=== PATIENT | female | born 1960 | race Caucasian/White ===

== ENCOUNTER 2017-06-13 07:32 | Emergency (ER) | payer MEDICAID ==
[~2017-06-13] VITALS: Ht 152.4 cm; Wt 50.0 kg
[2017-06-13 08:10] LABS: BASOPHILS # (AUTO) 0.03 x10^3/uL (0-0.1); BASOPHILS % (AUTO) 0 % (0-1); EOSINOPHILS # (AUTO) 0.01 x10^3/uL (0-0.4); EOSINOPHILS % (AUTO) 0 % (1-7); LYMPHOCYTES % (AUTO) 18 % (22-44); MD NO; MEAN CORPUSCULAR HEMOGLOBIN 30.2 pg (27.0-34.8); MEAN CORPUSCULAR HGB CONC 33.7 g/dL (32.4-35.8); MEAN CORPUSCULAR VOLUME 89.6 fL (80-100); MEAN PLATELET VOLUME 8.6 fL (7.4-10.4); MONOCYTES # (AUTO) 1.02 x10^3/uL (0.2-0.8); MONOCYTES % (AUTO) 9 % (2-9); NEUTROPHILS # (AUTO) 8.23 x10^3/uL (1.8-6.8); NEUTROPHILS % (AUTO) 73 % (42-75); PLATELET COUNT 258 x10^3/uL (130-400); RED BLOOD COUNT 4.82 x10^6/uL (3.82-5.3); RED CELL DISTRIBUTION WIDTH 12.9 % (9.6-15.2)
[2017-06-13 08:20] LABS: ALBUMIN 2.6 g/dL (3.4-5.0); ANION GAP 10 mmol/L (5-15); CALCIUM 8.7 mg/dL (8.5-10.1); CHLORIDE 102 mmol/L (98-107); CREATININE 2.02 mg/dL (0.55-1.02)
[2017-06-13 09:54] VITALS: BP 90/56
== END 2017-06-13 10:02 | disposition home or self-care (01) ==
LOC: ED 07:47
DX: R53.1 Weakness (principal); N18.3 Chronic kidney disease, stage 3 (moderate); I12.9 Hypertensive chronic kidney disease with stage 1 through stage 4 chronic kidney disease, or unspecified chronic kidney disease; E10.22 Type 1 diabetes mellitus with diabetic chronic kidney disease; E10.40 Type 1 diabetes mellitus with diabetic neuropathy, unspecified; F17.200 Nicotine dependence, unspecified, uncomplicated; E03.9 Hypothyroidism, unspecified; J44.9 Chronic obstructive pulmonary disease, unspecified; Z79.4 Long term (current) use of insulin
CPT/HCPCS: 36415; 80048; 82040; 85025; 93005; 99285

== ENCOUNTER 2017-07-19 15:21 | Inpatient (IN) | payer MEDICAID ==
[~2017-07-19] VITALS: Ht 162.6 cm; Wt 51.3 kg
[2017-07-19] MEDS ORDERED: SODIUM CHLORIDE 0.9%, 500ML IVBOLUS ONE (16:00)
[2017-07-19] MEDS ORDERED: SODIUM CHLORIDE FLUSH 10ML SYR IVF ONE (16:00)
[2017-07-19] MEDS ORDERED: SODIUM CHLORIDE 0.9% 1,000ML IVBOLUS ONE (16:00)
[2017-07-19 16:08] LABS: MEAN CORPUSCULAR HEMOGLOBIN 30.5 pg (27.0-34.8); MEAN CORPUSCULAR HGB CONC 32.4 g/dL (32.4-35.8); MEAN CORPUSCULAR VOLUME 94.3 fL (80-100); MEAN PLATELET VOLUME 8.8 fL (7.4-10.4); PLATELET COUNT 371 x10^3/uL (130-400); RED BLOOD COUNT 4.33 x10^6/uL (3.82-5.3); RED CELL DISTRIBUTION WIDTH 13.4 % (9.6-15.2)
[2017-07-19] MEDS ORDERED: LEVO25TA4 PO (16:08)
[2017-07-19] MEDS ORDERED: INSU100C SQ-INSULIN (16:08)
[2017-07-19] MEDS ORDERED: INSU100V8 SQ (16:08)
[2017-07-19] MEDS ORDERED: GABA300C10 PO (16:08)
[2017-07-19] MEDS ORDERED: LISI2.5T PO (16:08)
[2017-07-19 16:19] LABS: MICROSCOPIC AUTO
[2017-07-19 16:22] LABS: ALANINE AMINOTRANSFERASE 21 U/L (12-78); ALBUMIN 2.8 g/dL (3.4-5.0); ANION GAP 19 mmol/L (5-15); CALCIUM 8.7 mg/dL (8.5-10.1); CHLORIDE 77 mmol/L (98-107); CREATININE 1.85 mg/dL (0.55-1.02)
[2017-07-19 16:24] LABS: ALKALINE PHOSPHATASE 135 U/L (45-117); BILIRUBIN,TOTAL 0.7 mg/dL (0.2-1.0); TOTAL PROTEIN 7.6 g/dL (6.4-8.2)
[2017-07-19 16:27] LABS: CULTURE INDICATED? YES
[2017-07-19 16:28] LABS: AMPHETAMINE SCREEN, URINE Positive (Negative); BARBITURATE SCREEN, URINE Negative (Negative); BENZODIAZEPINE SCREEN, URINE Negative (Negative); CANNABINOID SCREEN, URINE Negative (Negative); COCAINE SCREEN, URINE Negative (Negative); METHADONE SCREEN, URINE Negative (Negative); OPIATE SCREEN, URINE Negative (Negative)
[2017-07-19] MEDS ORDERED: CEFTRIAXONE PMX 1GM/50ML 50 ML IVPB ONE (16:30)
[2017-07-19 16:31] LABS: TROPONIN I < 0.015 ng/mL (0.000-0.045)
[2017-07-19] MEDS ORDERED: CEFTRIAXONE PMX 1GM/50ML 50 ML ONE (16:35)
[2017-07-19 16:37] LABS: MD YES
[2017-07-19 16:38] LABS: <PLATELET ESTIMATE> ADEQUATE; <PLT MORPHOLOGY> NORMAL PLT MORPH; <RBC MORPHOLOGY> NORMAL; BAND#(MANUAL) 0.19 x10^3/uL; BANDS%(MANUAL) 1 % (0-7); MONOS#(MANUAL) 0.97 x10^3/uL (0.3-2.7); MONOS% (MANUAL) 5 % (2-9); SEG#(MANUAL) 18.24 x10^3/uL (1.8-6.8); SEGS% (MANUAL) 94 % (42-75)
[2017-07-19] MEDS ORDERED: REGULAR INSULIN 62.5 UNITS in SODIUM CHLORIDE 0.9% 249.375 ML IV PRN ×2 (16:40→18:00)
[2017-07-19] MEDS ORDERED: ONDANSETRON ODT 4 MG ONE (16:40)
[2017-07-19 16:49] LABS: HEMOGLOBIN A1C 11.6 % (4.2-6.3)
[2017-07-19] MEDS ORDERED: SODIUM BICARB 8.4%, 50ML SYRINGE IVPush ONE (17:00)
[2017-07-19] MEDS ORDERED: CALCIUM CHLORIDE 10%, 10ML SYR IVPush ONE (17:00)
[2017-07-19] MEDS ORDERED: ONDANSETRON ODT 4 MG PO ONE (17:00)
[2017-07-19] MEDS ORDERED: INSULIN REGULAR 100 UNITS/ML, 3ML VIAL IVPush ONE (17:00)
[2017-07-19] MEDS ORDERED: SODIUM BICARB 8.4%, 50ML SYRINGE ONE (17:03)
[2017-07-19] MEDS ORDERED: INSULIN REGULAR 100 UNITS/ML, 3ML VIAL ONE (17:03)
[2017-07-19] MEDS ORDERED: CALCIUM CHLORIDE 10%, 10ML SYR ONE (17:03)
[2017-07-19 17:10] LABS: ACETONE, SERUM Moderate(40mg/dL) mg/dL (Negative)
[2017-07-19] MEDS: D5%-0.45% NACL 1,000 ML IV SCH (17:51)
[2017-07-19] MEDS ORDERED: ACETAMINOPHEN 325 MG TABLET PO PRN (18:00)
[2017-07-19] MEDS ORDERED: POLYETHYLENE GLYCOL 17 GM PACKET PO PRN (18:00)
[2017-07-19] MEDS ORDERED: BISACODYL 10 MG SUPP PR PRN (18:00)
[2017-07-19] MEDS ORDERED: ONDANSETRON 2MG/ML, 2ML IVPush PRN (18:00)
[2017-07-19] MEDS ORDERED: DOCUSATE 100 MG CAPSULE PO PRN (18:00)
[2017-07-19 18:15] VITALS: BP 122/66
[2017-07-19] MEDS: SODIUM CHLORIDE 0.9% 1,000 ML IV SCH (18:50)
[2017-07-19] MEDS: NICOTINE 7 MG/24 HR PATCH.TD24 TD SCH (18:50)
[2017-07-19 19:28] LABS: ANION GAP 16 mmol/L (5-15); CALCIUM 8.9 mg/dL (8.5-10.1); CHLORIDE 88 mmol/L (98-107); CREATININE 1.62 mg/dL (0.55-1.02)
[2017-07-19] MEDS ORDERED: ONDANSETRON ODT 4 MG PO PRN (20:30)
[2017-07-19] MEDS: FAMOTIDINE 20 MG/2 ML IVPush SCH (21:12)
[2017-07-19 21:36] VITALS: BP 122/66
[2017-07-19 23:31] LABS: ANION GAP 10 mmol/L (5-15); CALCIUM 8.7 mg/dL (8.5-10.1); CHLORIDE 95 mmol/L (98-107); CREATININE 1.39 mg/dL (0.55-1.02)
[2017-07-20] MEDS: SODIUM CHLORIDE 0.9% 1,000 ML IV SCH (01:51)
[2017-07-20] MEDS: D5%-0.45% NACL 1,000 ML IV SCH (02:44)
[2017-07-20 04:00] VITALS: BP 102/51
[2017-07-20 04:04] LABS: ANION GAP 9 mmol/L (5-15); CALCIUM 8.7 mg/dL (8.5-10.1); CHLORIDE 100 mmol/L (98-107)
[2017-07-20 04:05] LABS: CREATININE 1.19 mg/dL (0.55-1.02)
[2017-07-20 04:16] LABS: BASOPHILS # (AUTO) 0.15 x10^3/uL (0-0.1); BASOPHILS % (AUTO) 1 % (0-1); EOSINOPHILS # (AUTO) 0.08 x10^3/uL (0-0.4); EOSINOPHILS % (AUTO) 1 % (1-7); LYMPHOCYTES # (AUTO) 3.45 x10^3/uL (1-3.4); LYMPHOCYTES % (AUTO) 23 % (22-44); MD NO; MEAN CORPUSCULAR HEMOGLOBIN 30.4 pg (27.0-34.8); MEAN CORPUSCULAR HGB CONC 33.2 g/dL (32.4-35.8); MEAN CORPUSCULAR VOLUME 91.6 fL (80-100); MEAN PLATELET VOLUME 8.1 fL (7.4-10.4); MONOCYTES # (AUTO) 1.19 x10^3/uL (0.2-0.8); MONOCYTES % (AUTO) 8 % (2-9); NEUTROPHILS # (AUTO) 10.49 x10^3/uL (1.8-6.8); NEUTROPHILS % (AUTO) 68 % (42-75); PLATELET COUNT 351 x10^3/uL (130-400); RED BLOOD COUNT 4.04 x10^6/uL (3.82-5.3); RED CELL DISTRIBUTION WIDTH 13.6 % (9.6-15.2)
[2017-07-20] MEDS: LEVOTHYROXINE 88 MCG TABLET PO SCH (05:39)
[2017-07-20 07:23] LABS: ANION GAP 9 mmol/L (5-15); CALCIUM 8.1 mg/dL (8.5-10.1); CHLORIDE 100 mmol/L (98-107); CREATININE 0.98 mg/dL (0.55-1.02)
[2017-07-20] MEDS: GABAPENTIN 300 MG CAPSULE PO SCH (08:46)
[2017-07-20] MEDS: FAMOTIDINE 20 MG/2 ML IVPush SCH ×2 (08:47→21:27)
[2017-07-20] MEDS: ENOXAPARIN 40 MG/0.4 ML SQ SCH (08:47)
[2017-07-20] MEDS ORDERED: INSULIN GLARGINE 100 UNITS/ML, PEN SQ-INSULIN SCH (10:30)
[2017-07-20] MEDS ORDERED: INSULIN GLARGINE 100 UNITS/ML, PEN ONE (10:32)
[2017-07-20] MEDS: CEFTRIAXONE PMX 1GM/50ML 50 ML IV SCH (11:03)
[2017-07-20] MEDS: INSULIN LISPRO 100 UNITS/ML, PEN SQ-INSULIN SCH ×2 (12:59→18:17)
[2017-07-20] MEDS ORDERED: LIDODERM 5% PATCH TD SCH (13:00)
[2017-07-20] MEDS ORDERED: KETOROLAC 30 MG/1 ML IVPush PRN (13:00)
[2017-07-20 14:25] VITALS: BP 102/63
[2017-07-20] MEDS: NICOTINE 7 MG/24 HR PATCH.TD24 TD SCH (18:17)
[2017-07-20 19:44] VITALS: BP 115/65
[2017-07-21] MEDS: INSULIN LISPRO 100 UNITS/ML, PEN SQ-INSULIN SCH ×3 (00:30→11:51)
[2017-07-21 01:23] VITALS: BP 163/94
[2017-07-21 05:31] LABS: BASOPHILS # (AUTO) 0.08 x10^3/uL (0-0.1); BASOPHILS % (AUTO) 1 % (0-1); EOSINOPHILS # (AUTO) 0.16 x10^3/uL (0-0.4); EOSINOPHILS % (AUTO) 2 % (1-7); LYMPHOCYTES # (AUTO) 2.62 x10^3/uL (1-3.4); LYMPHOCYTES % (AUTO) 38 % (22-44); MD NO; MEAN CORPUSCULAR HGB CONC 33.4 g/dL (32.4-35.8); MEAN CORPUSCULAR VOLUME 92.7 fL (80-100); MEAN PLATELET VOLUME 7.9 fL (7.4-10.4); MONOCYTES # (AUTO) 0.51 x10^3/uL (0.2-0.8); MONOCYTES % (AUTO) 7 % (2-9); NEUTROPHILS # (AUTO) 3.48 x10^3/uL (1.8-6.8); NEUTROPHILS % (AUTO) 51 % (42-75); PLATELET COUNT 339 x10^3/uL (130-400); RED BLOOD COUNT 3.79 x10^6/uL (3.82-5.3); RED CELL DISTRIBUTION WIDTH 13.9 % (9.6-15.2)
[2017-07-21 05:38] LABS: CHLORIDE 102 mmol/L (98-107)
[2017-07-21 05:46] LABS: ALANINE AMINOTRANSFERASE 18 U/L (12-78); ALBUMIN 1.8 g/dL (3.4-5.0); ALKALINE PHOSPHATASE 83 U/L (45-117); ANION GAP 8 mmol/L (5-15); BILIRUBIN,TOTAL 0.2 mg/dL (0.2-1.0); CALCIUM 7.9 mg/dL (8.5-10.1); CREATININE 0.93 mg/dL (0.55-1.02); TOTAL PROTEIN 5.6 g/dL (6.4-8.2)
[2017-07-21] MEDS: LEVOTHYROXINE 88 MCG TABLET PO SCH (06:16)
[2017-07-21 06:55] VITALS: BP 171/98
[2017-07-21] MEDS: GABAPENTIN 300 MG CAPSULE PO SCH (08:21)
[2017-07-21] MEDS: CEFTRIAXONE PMX 1GM/50ML 50 ML IV SCH (08:21)
[2017-07-21] MEDS: ENOXAPARIN 40 MG/0.4 ML SQ SCH (08:21)
[2017-07-21] MEDS: FAMOTIDINE 20 MG/2 ML IVPush SCH (08:21)
[2017-07-21] MEDS ORDERED: INSULIN GLARGINE 100 UNITS/ML, PEN SQ-INSULIN SCH (10:30)
[2017-07-21 12:24] VITALS: BP 134/61
[2017-07-21] MEDS ORDERED: INSU100C SQ-INSULIN (12:48)
[2017-07-21] MEDS ORDERED: CEFD300C37 PO (12:48)
[2017-07-21] MEDS ORDERED: INSU100V8 SQ (12:48)
[2017-07-21] MEDS ORDERED: LEVO25TA4 PO (12:48)
== END 2017-07-21 14:43 | disposition home or self-care (01) | DRG 637 ==
LOC: ED 17:07 → CCU 17:51 → 3NE 07-20 13:54
PROVIDERS: ADMIT Emergency Medicine; ATTEND Emergency Medicine
DX: E10.10 Type 1 diabetes mellitus with ketoacidosis without coma (principal); E43 Unspecified severe protein-calorie malnutrition; N17.9 Acute kidney failure, unspecified; N10 Acute pyelonephritis; E87.5 Hyperkalemia; E87.1 Hypo-osmolality and hyponatremia; Z68.1 Body mass index [BMI] 19.9 or less, adult; B19.20 Unspecified viral hepatitis C without hepatic coma; E03.9 Hypothyroidism, unspecified; F15.90 Other stimulant use, unspecified, uncomplicated; F17.200 Nicotine dependence, unspecified, uncomplicated; I10 Essential (primary) hypertension; J44.9 Chronic obstructive pulmonary disease, unspecified; Z59.0 Homelessness
CPT/HCPCS: 36415; 71045; 80048; 80053; 80307; 81001; 82010; 82800; 82947; 82962; 83036; 83605; 83690; 83735; 84100; 84443; 84484; 85025; 86706; 86803; 87040; 87081; 87086; 87340; 87521; 87806; 93005; 96361; 96365; 96375; 96376; 99291; J0696; J1650; J1815; J1885; Q0162; G0475; J7030; J7040; J7050; S0028

== ENCOUNTER 2017-10-19 15:40 | Emergency (ER) | payer MEDICAID ==
[~2017-10-19] VITALS: Ht 152.4 cm; Wt 41.0 kg
[~2017-10-19 15:40] MED LIST: CEFD300C37 PO; GABA300C10 PO; INSU100C SQ-INSULIN; INSU100V8 SQ; LEVO25TA4 PO; LISI2.5T PO
[2017-10-19] MEDS ORDERED: SODIUM CHLORIDE 0.9% 1,000ML IVBOLUS ONE ×2 (16:00→17:30)
[2017-10-19] MEDS ORDERED: LIDOCAINE-MPF 1%, 5ML INFIL ONE (16:00)
[2017-10-19] MEDS ORDERED: LIDOCAINE-MPF 1%, 2ML ONE (16:03)
[2017-10-19 16:38] LABS: PH, VENOUS 7.356 pH (7.320-7.420)
[2017-10-19 16:39] LABS: FIO2 ROOM AIR %
[2017-10-19 16:48] LABS: ALANINE AMINOTRANSFERASE 24 U/L (12-78); ALBUMIN 2.3 g/dL (3.4-5.0); ANION GAP 9 mmol/L (5-15); CALCIUM 8.1 mg/dL (8.5-10.1); CHLORIDE 103 mmol/L (98-107); CREATININE 1.17 mg/dL (0.55-1.02)
[2017-10-19 16:50] LABS: ALKALINE PHOSPHATASE 109 U/L (45-117); BILIRUBIN,TOTAL 0.1 mg/dL (0.2-1.0); TOTAL PROTEIN 6.4 g/dL (6.4-8.2)
[2017-10-19 17:04] LABS: CULTURE INDICATED? YES; MICROSCOPIC AUTO
[2017-10-19] MEDS ORDERED: INSULIN REGULAR 100 UNITS/ML, 3ML VIAL ONE (17:08)
[2017-10-19 17:13] LABS: ACETONE, SERUM Negative (Negative)
[2017-10-19] MEDS ORDERED: CEFTRIAXONE PMX 1GM/50ML 50 ML ONE (17:15)
[2017-10-19] MEDS ORDERED: CEFTRIAXONE PMX 1GM/50ML 50 ML IV ONE (17:30)
[2017-10-19] MEDS ORDERED: INSULIN REGULAR 100 UNITS/ML, 3ML VIAL IVPush ONE (17:30)
[2017-10-19 17:40] LABS: BASOPHILS # (AUTO) 0.02 x10^3/uL (0-0.1); BASOPHILS % (AUTO) 0 % (0-1); EOSINOPHILS % (AUTO) 2 % (1-7); LYMPHOCYTES # (AUTO) 2.53 x10^3/uL (1-3.4); LYMPHOCYTES % (AUTO) 40 % (22-44); MD NO; MEAN CORPUSCULAR HGB CONC 33.5 g/dL (32.4-35.8); MEAN CORPUSCULAR VOLUME 92.6 fL (80-100); MEAN PLATELET VOLUME 8.4 fL (7.4-10.4); MONOCYTES # (AUTO) 0.14 x10^3/uL (0.2-0.8); MONOCYTES % (AUTO) 2 % (2-9); NEUTROPHILS # (AUTO) 3.46 x10^3/uL (1.8-6.8); NEUTROPHILS % (AUTO) 55 % (42-75); PLATELET COUNT 314 x10^3/uL (130-400); RED CELL DISTRIBUTION WIDTH 13.5 % (9.6-15.2)
[2017-10-19 18:20] VITALS: BP 174/92
== END 2017-10-19 18:58 | disposition home or self-care (01) ==
LOC: ED 18:10
DX: E10.65 Type 1 diabetes mellitus with hyperglycemia (principal); I10 Essential (primary) hypertension; Z59.0 Homelessness; Z72.9 Problem related to lifestyle, unspecified; J44.9 Chronic obstructive pulmonary disease, unspecified; E03.9 Hypothyroidism, unspecified; E10.10 Type 1 diabetes mellitus with ketoacidosis without coma
CPT/HCPCS: 36415; 80053; 81001; 82010; 82800; 82803; 85025; 87077; 87086; 96361; 96365; 96375; 99284; J0696; J7030; 87186

== ENCOUNTER 2019-02-23 15:08 | Inpatient (IN) | payer MEDICAID ==
[~2019-02-23] VITALS: Ht 154.9 cm; Wt 50.0 kg
[2019-02-23] MEDS ORDERED: DIPH,PERTUSS(ACELL),TET VAC/PF 0.5 ML IM-VACC ONE ×2 (15:30→16:34)
[2019-02-23 15:49] LABS: MEAN CORPUSCULAR HEMOGLOBIN 30.2 pg (27.0-34.8); MEAN CORPUSCULAR HGB CONC 32.6 g/dL (32.4-35.8); MEAN CORPUSCULAR VOLUME 92.6 fL (80-100); MEAN PLATELET VOLUME 8.3 fL (7.4-10.4); PLATELET COUNT 465 x10^3/uL (130-400); RED BLOOD COUNT 4.63 x10^6/uL (3.82-5.3); RED CELL DISTRIBUTION WIDTH 14.1 % (9.6-15.2)
[2019-02-23 16:01] LABS: ALBUMIN 2.6 g/dL (3.4-5.0); ANION GAP 8 mmol/L (5-15); CALCIUM 9.3 mg/dL (8.5-10.1); CHLORIDE 100 mmol/L (98-107); CREATININE 1.86 mg/dL (0.55-1.02)
[2019-02-23 16:06] LABS: BASOPHILS # (AUTO) 0.02 x10^3/uL (0-0.1); BASOPHILS % (AUTO) 0 % (0-1); EOSINOPHILS % (AUTO) 0 % (1-7); LYMPHOCYTES # (AUTO) 0.75 x10^3/uL (1-3.4); LYMPHOCYTES % (AUTO) 3 % (22-44); MD SCAN; MONOCYTES # (AUTO) 0.63 x10^3/uL (0.2-0.8); MONOCYTES % (AUTO) 3 % (2-9); NEUTROPHILS # (AUTO) 20.99 x10^3/uL (1.8-6.8); NEUTROPHILS % (AUTO) 94 % (42-75)
[2019-02-23] MEDS ORDERED: LEVO88TA4 PO (16:24)
[2019-02-23] MEDS ORDERED: CYCL5TAB PO (16:24)
[2019-02-23] MEDS ORDERED: ATOR-2 PO (16:24)
[2019-02-23] MEDS ORDERED: INSU100V8 SQ (16:24)
[2019-02-23] MEDS ORDERED: GABA300C10 PO (16:24)
[2019-02-23] MEDS ORDERED: PHARMACOKINETIC CONSULTATION MC ONE ×2 (16:30→21:30)
[2019-02-23] MEDS ORDERED: AMPICILLIN/SULBACTAM 3 GM in SODIUM CHLORIDE 0.9% 100 ML IV ONE (16:30)
[2019-02-23] MEDS ORDERED: VANCOMYCIN PER PHARMACY MC ONE (16:30)
[2019-02-23] MEDS ORDERED: LORazepam 2 MG/ML, 1ML IVPush ONE (16:30)
[2019-02-23] MEDS ORDERED: VANCOMYCIN PMX 1GM/200ML 200 ML IVPB ONE (16:30)
[2019-02-23] MEDS ORDERED: SODIUM CHLORIDE 0.9% 1,000ML IVBOLUS ONE ×2 (16:30)
[2019-02-23] MEDS ORDERED: LORazepam 2 MG/ML, 1ML ONE (16:33)
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
[2019-02-23] MEDS ORDERED: PHARMACY MAY ADJ FOR RENAL FX MC PRN (19:30)
[2019-02-23] MEDS ORDERED: DOCUSATE 100 MG CAPSULE PO PRN (19:30)
[2019-02-23] MEDS ORDERED: ONDANSETRON ODT 4 MG PO PRN (19:30)
[2019-02-23] MEDS: HEPARIN 5,000 UNITS/ML, 1ML SQ SCH (19:30)
[2019-02-23] MEDS ORDERED: TEMAZEPAM 15 MG CAPSULE PO PRN (19:30)
[2019-02-23] MEDS ORDERED: VANCOMYCIN PER PHARMACY MC PRN (19:30)
--- NOTE | 2019-02-23 19:39 | NUR ---
REPORT TO MARY ALICE SANDS
[2019-02-23] MEDS ORDERED: NICOTINE 21 MG/24 HR PATCH.TD24 TD PRN (20:00)
[2019-02-23 21:00] VITALS: BP 187/61
[2019-02-23] MEDS ORDERED: PHARMACOKINETIC MONITORING MC PRN (21:30)
[2019-02-23] MEDS: ACETAMINOPHEN 325 MG TABLET PO PRN (21:58)
[2019-02-23] MEDS: CYCLOBENZAPRINE 10 MG TABLET PO PRN (21:59)
[2019-02-23] MEDS: INSULIN LISPRO 100 UNITS/ML, PEN SQ-INSULIN SCH (22:19)
[2019-02-24 00:07] VITALS: BP 150/74
[2019-02-24 01:11] VITALS: BP 152/58
[2019-02-24] MEDS: HEPARIN 5,000 UNITS/ML, 1ML SQ SCH ×3 (03:22→20:49)
[2019-02-24] MEDS: AMPICILLIN/SULBACTAM 3 GM in SODIUM CHLORIDE 0.9% 100 ML IV SCH ×3 (03:22→21:12)
[2019-02-24] MEDS: ACETAMINOPHEN 325 MG TABLET PO PRN ×2 (06:30→10:39)
[2019-02-24 06:47] LABS: MEAN CORPUSCULAR HEMOGLOBIN 30.5 pg (27.0-34.8); MEAN CORPUSCULAR HGB CONC 33.1 g/dL (32.4-35.8); MEAN CORPUSCULAR VOLUME 92.2 fL (80-100); PLATELET COUNT 409 x10^3/uL (130-400); RED BLOOD COUNT 4.35 x10^6/uL (3.82-5.3); RED CELL DISTRIBUTION WIDTH 13.9 % (9.6-15.2)
[2019-02-24 06:59] LABS: ANION GAP 9 mmol/L (5-15); CALCIUM 8.7 mg/dL (8.5-10.1); CHLORIDE 107 mmol/L (98-107); CREATININE 1.25 mg/dL (0.55-1.02)
[2019-02-24] MEDS: INSULIN LISPRO 100 UNITS/ML, PEN SQ-INSULIN SCH ×4 (07:00→20:49)
[2019-02-24 07:52] LABS: BASOPHILS # (AUTO) 0.03 x10^3/uL (0-0.1); BASOPHILS % (AUTO) 0 % (0-1); EOSINOPHILS # (AUTO) 0.15 x10^3/uL (0-0.4); EOSINOPHILS % (AUTO) 1 % (1-7); LYMPHOCYTES % (AUTO) 9 % (22-44); MD SCAN; MONOCYTES # (AUTO) 0.79 x10^3/uL (0.2-0.8); MONOCYTES % (AUTO) 5 % (2-9); NEUTROPHILS # (AUTO) 14.82 x10^3/uL (1.8-6.8); NEUTROPHILS % (AUTO) 85 % (42-75)
[2019-02-24 08:29] VITALS: BP 119/74
[2019-02-24] MEDS ORDERED: LEVOTHYROXINE 88 MCG TABLET PO SCH (09:00)
[2019-02-24] MEDS: LINEZOLID PMX 600MG/300ML 300 ML IV SCH ×2 (10:33→22:23)
[2019-02-24] MEDS: INSULIN GLARGINE 100 UNITS/ML, PEN SQ-INSULIN SCH (10:38)
[2019-02-24] MEDS: CYCLOBENZAPRINE 10 MG TABLET PO PRN (10:39)
[2019-02-24] MEDS: ATORVASTATIN 80 MG TABLET PO SCH (10:39)
[2019-02-24] MEDS: GABAPENTIN 300 MG CAPSULE PO SCH (10:39)
[2019-02-24] MEDS: SODIUM CHLORIDE 0.9% 1,000 ML IV SCH (11:00)
[2019-02-24 12:55] LABS: FREE T4 (FREE THYROXINE) 0.97 ng/dL (0.76-1.46)
[2019-02-24 13:50] VITALS: BP 124/78
[2019-02-24 14:13] LABS: AMPHETAMINE SCREEN, URINE Positive (Negative); BARBITURATE SCREEN, URINE Negative (Negative); BENZODIAZEPINE SCREEN, URINE Negative (Negative); CANNABINOID SCREEN, URINE Negative (Negative); COCAINE SCREEN, URINE Negative (Negative); METHADONE SCREEN, URINE Negative (Negative); OPIATE SCREEN, URINE Negative (Negative)
[2019-02-24] MEDS ORDERED: GADOTERATE 7.5 MMOL/15 ML SYR ONE (15:12)
[2019-02-24] MEDS ORDERED: VANCOMYCIN PMX 1GM/200ML 200 ML IV SCH (18:00)
[2019-02-24 19:31] VITALS: BP 161/91
[2019-02-25] MEDS: SODIUM CHLORIDE 0.9% 1,000 ML IV SCH ×3 (02:08→17:18)
[2019-02-25 03:59] VITALS: BP 123/74
[2019-02-25] MEDS: AMPICILLIN/SULBACTAM 3 GM in SODIUM CHLORIDE 0.9% 100 ML IV SCH ×3 (05:31→21:05)
[2019-02-25] MEDS: LEVOTHYROXINE 100 MCG TABLET PO SCH (05:31)
[2019-02-25] MEDS: HEPARIN 5,000 UNITS/ML, 1ML SQ SCH ×3 (05:32→21:05)
[2019-02-25 06:09] LABS: MEAN CORPUSCULAR HEMOGLOBIN 29.7 pg (27.0-34.8); MEAN CORPUSCULAR HGB CONC 31.9 g/dL (32.4-35.8); PLATELET COUNT 420 x10^3/uL (130-400); RED BLOOD COUNT 4.17 x10^6/uL (3.82-5.3); RED CELL DISTRIBUTION WIDTH 13.9 % (9.6-15.2)
[2019-02-25 06:20] LABS: ALANINE AMINOTRANSFERASE 16 U/L (12-78); ALBUMIN 1.6 g/dL (3.4-5.0); ANION GAP 7 mmol/L (5-15); CHLORIDE 109 mmol/L (98-107)
[2019-02-25 06:26] LABS: ALKALINE PHOSPHATASE 133 U/L (45-117); BILIRUBIN,TOTAL 0.3 mg/dL (0.2-1.0); TOTAL PROTEIN 6.6 g/dL (6.4-8.2)
[2019-02-25 06:34] LABS: C-REACTIVE PROTEIN, QUANT > 19.00 mg/dL (0.02-0.49)
[2019-02-25 07:00] LABS: HCT (SEDRATE) 38.8 % (34.6-47.8)
[2019-02-25] MEDS: INSULIN LISPRO 100 UNITS/ML, PEN SQ-INSULIN SCH ×4 (07:00→21:07)
[2019-02-25 07:07] LABS: ANISOCYTOSIS 1+; BASOPHILS # (AUTO) 0.05 x10^3/uL (0-0.1); BASOPHILS % (AUTO) 0 % (0-1); EOSINOPHILS # (AUTO) 0.04 x10^3/uL (0-0.4); EOSINOPHILS % (AUTO) 0 % (1-7); LYMPHOCYTES # (AUTO) 2.02 x10^3/uL (1-3.4); LYMPHOCYTES % (AUTO) 12 % (22-44); MD MORPH REVIEW ONLY; MONOCYTES # (AUTO) 1.07 x10^3/uL (0.2-0.8); MONOCYTES % (AUTO) 7 % (2-9); NEUTROPHILS # (AUTO) 13.33 x10^3/uL (1.8-6.8); NEUTROPHILS % (AUTO) 81 % (42-75)
[2019-02-25 07:11] LABS: <PLATELET ESTIMATE> INCREASED; TOXIC GRAN 1+
[2019-02-25 07:12] LABS: <PLT MORPHOLOGY> NORMAL PLT MORPH
[2019-02-25] MEDS: SODIUM CHLORIDE FLUSH 10ML SYR IVF SCH ×2 (08:10→21:05)
[2019-02-25] MEDS ORDERED: DEXTROSE 50%, 50ML SYRINGE IVPush PRN (08:30)
[2019-02-25] MEDS: D5%-0.45% NACL 1,000 ML IV SCH ×2 (08:30→16:30)
[2019-02-25] MEDS: GLUCAGON 1 MG IM PRN (08:32)
[2019-02-25] MEDS: ATORVASTATIN 80 MG TABLET PO SCH (08:36)
[2019-02-25] MEDS: GABAPENTIN 300 MG CAPSULE PO SCH (08:36)
[2019-02-25] MEDS: INSULIN GLARGINE 100 UNITS/ML, PEN SQ-INSULIN SCH (08:37)
[2019-02-25 09:21] VITALS: BP 125/76
[2019-02-25 10:25] VITALS: BP 142/87
[2019-02-25] MEDS ORDERED: MIDAZOLAM 1 MG/ML, 2ML ONE (10:33)
[2019-02-25] MEDS ORDERED: FENTANYL PF 250 MCG/5ML ONE (10:33)
[2019-02-25] MEDS ORDERED: DEXAMETHASONE 4 MG/ML, 1ML ONE ×3 (10:35→16:30)
[2019-02-25] MEDS ORDERED: ONDANSETRON 2MG/ML, 2ML ONE ×2 (10:35→16:30)
[2019-02-25] MEDS ORDERED: FENTANYL PF 100 MCG/2ML IV PRN (11:00)
[2019-02-25] MEDS ORDERED: OXYcodone 5 MG/5 ML ORAL.SOL UDC PO PRN ×2 (11:00→13:30)
[2019-02-25] MEDS ORDERED: MEPERIDINE/PF 25MG/ML,1ML IVPush PRN (11:00)
[2019-02-25] MEDS ORDERED: HYDROmorphone 2 MG/ML, 1ML IVPush PRN (11:00)
[2019-02-25] MEDS ORDERED: PROMETHAZINE 25 MG/ML, 1ML IV PRN (11:00)
[2019-02-25] MEDS ORDERED: HALOPERIDOL 5 MG/ML IV PRN (11:00)
[2019-02-25] MEDS ORDERED: MORPHINE SULFATE 4 MG/ML, 1ML IVPush PRN (11:00)
[2019-02-25] MEDS ORDERED: hydrALAzine 20 MG/ML, 1ML IV PRN (11:00)
[2019-02-25] MEDS ORDERED: LABETALOL 5MG/ML, 20ML IV PRN (11:00)
[2019-02-25] MEDS: LINEZOLID PMX 600MG/300ML 300 ML IV SCH ×2 (11:11→23:15)
[2019-02-25] MEDS ORDERED: OXYcodone 5 MG/5 ML ORAL.SOL UDC ONE (12:35)
[2019-02-25 13:41] VITALS: BP 137/85
[2019-02-25] MEDS ORDERED: PROPOFOL 10 MG/ML, 20ML ONE (16:30)
[2019-02-25 20:17] VITALS: BP 111/69
[2019-02-26] MEDS: SODIUM CHLORIDE 0.9% 1,000 ML IV SCH ×3 (02:35→16:49)
[2019-02-26 03:17] VITALS: BP 120/72
[2019-02-26] MEDS: LEVOTHYROXINE 100 MCG TABLET PO SCH (05:50)
[2019-02-26] MEDS: AMPICILLIN/SULBACTAM 3 GM in SODIUM CHLORIDE 0.9% 100 ML IV SCH ×3 (05:50→21:57)
[2019-02-26] MEDS: HEPARIN 5,000 UNITS/ML, 1ML SQ SCH ×3 (05:50→21:58)
[2019-02-26] MEDS: GABAPENTIN 300 MG CAPSULE PO SCH (08:01)
[2019-02-26] MEDS: ATORVASTATIN 80 MG TABLET PO SCH (08:01)
[2019-02-26] MEDS: SODIUM CHLORIDE FLUSH 10ML SYR IVF SCH ×2 (08:01→21:57)
[2019-02-26] MEDS: INSULIN GLARGINE 100 UNITS/ML, PEN SQ-INSULIN SCH ×2 (08:02→13:49)
[2019-02-26] MEDS: INSULIN LISPRO 100 UNITS/ML, PEN SQ-INSULIN SCH ×2 (08:02→12:15)
[2019-02-26 08:44] LABS: MEAN CORPUSCULAR HEMOGLOBIN 29.3 pg (27.0-34.8); MEAN CORPUSCULAR HGB CONC 31.3 g/dL (32.4-35.8); MEAN CORPUSCULAR VOLUME 93.6 fL (80-100); MEAN PLATELET VOLUME 7.8 fL (7.4-10.4); PLATELET COUNT 304 x10^3/uL (130-400); RED BLOOD COUNT 3.94 x10^6/uL (3.82-5.3); RED CELL DISTRIBUTION WIDTH 14.1 % (9.6-15.2)
[2019-02-26 08:50] LABS: ANION GAP 9 mmol/L (5-15); CALCIUM 7.8 mg/dL (8.5-10.1); CHLORIDE 104 mmol/L (98-107); CREATININE 1.55 mg/dL (0.55-1.02)
[2019-02-26 09:03] LABS: MD YES
[2019-02-26 09:04] LABS: LYMPH#(MANUAL) 0.75 x10^3/uL (1-3.4); LYMPHS% (MANUAL) 3 % (22-44); MONOS#(MANUAL) 0.25 x10^3/uL (0.3-2.7); MONOS% (MANUAL) 1 % (2-9); SEGS% (MANUAL) 96 % (42-75)
[2019-02-26 09:05] LABS: ANISOCYTOSIS 1+
[2019-02-26 09:06] LABS: <PLATELET ESTIMATE> ADEQUATE; <PLT MORPHOLOGY> NORMAL PLT MORPH
[2019-02-26 09:59] VITALS: BP 124/68
[2019-02-26] MEDS ORDERED: INSULIN LISPRO 100 UNIT/ML, 3ML VIAL SQ-INSULIN ONE ×3 (10:00→22:00)
[2019-02-26] MEDS: SODIUM CHLORIDE 0.9% IVPB SCH (10:51)
[2019-02-26] MEDS: DAPTOMYCIN IVPB SCH (10:51)
[2019-02-26 15:32] VITALS: BP 114/67
[2019-02-26 19:24] VITALS: BP 123/72
[2019-02-27] MEDS: SODIUM CHLORIDE 0.9% 1,000 ML IV SCH ×3 (01:00→20:47)
[2019-02-27] MEDS: INSULIN GLARGINE 100 UNITS/ML, PEN SQ-INSULIN SCH ×4 (01:11→21:00)
[2019-02-27] MEDS: ACETAMINOPHEN 325 MG TABLET PO PRN (01:14)
[2019-02-27 01:17] VITALS: BP 148/74
[2019-02-27] MEDS: AMPICILLIN/SULBACTAM 3 GM in SODIUM CHLORIDE 0.9% 100 ML IV SCH ×3 (05:41→21:12)
[2019-02-27] MEDS: LEVOTHYROXINE 100 MCG TABLET PO SCH (05:48)
[2019-02-27] MEDS: HEPARIN 5,000 UNITS/ML, 1ML SQ SCH ×3 (05:49→20:47)
[2019-02-27 06:37] LABS: MEAN CORPUSCULAR HEMOGLOBIN 30.2 pg (27.0-34.8); MEAN CORPUSCULAR HGB CONC 32.1 g/dL (32.4-35.8); MEAN CORPUSCULAR VOLUME 94.1 fL (80-100); MEAN PLATELET VOLUME 8.2 fL (7.4-10.4); PLATELET COUNT 385 x10^3/uL (130-400); RED BLOOD COUNT 3.32 x10^6/uL (3.82-5.3); RED CELL DISTRIBUTION WIDTH 14.2 % (9.6-15.2)
[2019-02-27 06:42] LABS: ANION GAP 7 mmol/L (5-15); CALCIUM 7.7 mg/dL (8.5-10.1); CHLORIDE 108 mmol/L (98-107)
[2019-02-27 07:01] LABS: BASOPHILS # (AUTO) 0.05 x10^3/uL (0-0.1); BASOPHILS % (AUTO) 0 % (0-1); EOSINOPHILS # (AUTO) 0.14 x10^3/uL (0-0.4); EOSINOPHILS % (AUTO) 1 % (1-7); LYMPHOCYTES # (AUTO) 1.65 x10^3/uL (1-3.4); LYMPHOCYTES % (AUTO) 12 % (22-44); MD SCAN; MONOCYTES % (AUTO) 5 % (2-9); NEUTROPHILS # (AUTO) 11.64 x10^3/uL (1.8-6.8); NEUTROPHILS % (AUTO) 82 % (42-75)
[2019-02-27] MEDS ORDERED: MAGNESIUM SULFATE PMX 2GM/50ML 50 ML IV ONE (07:30)
[2019-02-27] MEDS: GABAPENTIN 400 MG CAPSULE PO SCH (07:59)
[2019-02-27 08:15] VITALS: BP 168/84
[2019-02-27] MEDS: SODIUM CHLORIDE FLUSH 10ML SYR IVF SCH ×2 (08:55→20:47)
[2019-02-27] MEDS ORDERED: INSULIN LISPRO 100 UNITS/ML, PEN SQ-INSULIN ONE ×2 (11:30→17:30)
[2019-02-27] MEDS: DAPTOMYCIN IVPB SCH (12:44)
[2019-02-27] MEDS: SODIUM CHLORIDE 0.9% IVPB SCH (12:44)
[2019-02-27 13:35] VITALS: BP 165/83
[2019-02-27 19:22] VITALS: BP 171/91
[2019-02-28] VITALS (8 sets, daily range): BP systolic 134–207; BP diastolic 74–124
[2019-02-28] MEDS: SODIUM CHLORIDE 0.9% 1,000 ML IV SCH ×2 (00:59→18:01)
[2019-02-28] MEDS: HEPARIN 5,000 UNITS/ML, 1ML SQ SCH ×3 (05:30→21:48)
[2019-02-28] MEDS: LEVOTHYROXINE 100 MCG TABLET PO SCH (05:39)
[2019-02-28] MEDS: AMPICILLIN/SULBACTAM 3 GM in SODIUM CHLORIDE 0.9% 100 ML IV SCH ×3 (05:41→20:13)
[2019-02-28] MEDS ORDERED: INSULIN GLARGINE 100 UNITS/ML, PEN SQ-INSULIN SCH ×3 (06:15→18:00)
[2019-02-28] MEDS: DEXTROSE 4 GM TAB.CHEW PO PRN ×3 (07:38→08:04)
[2019-02-28] MEDS: GLUCAGON 1 MG IM PRN (07:50)
[2019-02-28] MEDS: SODIUM CHLORIDE FLUSH 10ML SYR IVF SCH ×2 (09:00→21:48)
[2019-02-28] MEDS: GABAPENTIN 400 MG CAPSULE PO SCH (10:46)
[2019-02-28] MEDS: DAPTOMYCIN IVPB SCH (13:00)
[2019-02-28] MEDS: SODIUM CHLORIDE 0.9% IVPB SCH (13:00)
[2019-02-28] MEDS: hydrALAzine 20 MG/ML, 1ML IV PRN ×2 (13:08→17:15)
[2019-02-28] MEDS: ACETAMINOPHEN 325 MG TABLET PO PRN (18:02)
[2019-03-01] VITALS (7 sets, daily range): BP systolic 128–213; BP diastolic 68–118
[2019-03-01] MEDS: SODIUM CHLORIDE 0.9% 1,000 ML IV SCH ×3 (02:40→20:04)
[2019-03-01] MEDS: AMPICILLIN/SULBACTAM 3 GM in SODIUM CHLORIDE 0.9% 100 ML IV SCH ×3 (04:26→20:12)
[2019-03-01 04:47] LABS: ANION GAP 5 mmol/L (5-15); CALCIUM 7.7 mg/dL (8.5-10.1); CHLORIDE 110 mmol/L (98-107)
[2019-03-01 04:48] LABS: CREATININE 0.89 mg/dL (0.55-1.02)
[2019-03-01 04:52] LABS: BASOPHILS # (AUTO) 0.08 x10^3/uL (0-0.1); BASOPHILS % (AUTO) 1 % (0-1); EOSINOPHILS # (AUTO) 0.21 x10^3/uL (0-0.4); EOSINOPHILS % (AUTO) 3 % (1-7); LYMPHOCYTES # (AUTO) 2.42 x10^3/uL (1-3.4); LYMPHOCYTES % (AUTO) 29 % (22-44); MD NO; MEAN CORPUSCULAR HEMOGLOBIN 30.1 pg (27.0-34.8); MEAN CORPUSCULAR HGB CONC 32.1 g/dL (32.4-35.8); MEAN CORPUSCULAR VOLUME 93.7 fL (80-100); MEAN PLATELET VOLUME 7.5 fL (7.4-10.4); MONOCYTES # (AUTO) 0.74 x10^3/uL (0.2-0.8); MONOCYTES % (AUTO) 9 % (2-9); NEUTROPHILS # (AUTO) 4.98 x10^3/uL (1.8-6.8); NEUTROPHILS % (AUTO) 59 % (42-75); PLATELET COUNT 431 x10^3/uL (130-400); RED BLOOD COUNT 3.65 x10^6/uL (3.82-5.3)
[2019-03-01] MEDS: LEVOTHYROXINE 100 MCG TABLET PO SCH (05:27)
[2019-03-01] MEDS: HEPARIN 5,000 UNITS/ML, 1ML SQ SCH ×3 (05:27→20:04)
[2019-03-01] MEDS ORDERED: MAGNESIUM SULFATE PMX 2GM/50ML 50 ML IV ONE (08:00)
[2019-03-01] MEDS: INSULIN GLARGINE 100 UNITS/ML, PEN SQ-INSULIN SCH (08:06)
[2019-03-01] MEDS: GABAPENTIN 400 MG CAPSULE PO SCH (08:11)
[2019-03-01] MEDS: SODIUM CHLORIDE FLUSH 10ML SYR IVF SCH ×2 (08:13→20:04)
[2019-03-01] MEDS ORDERED: INSULIN LISPRO 100 UNITS/ML, PEN SQ-INSULIN ONE (12:00)
[2019-03-01] MEDS ORDERED: INSULIN GLARGINE 100 UNITS/ML, PEN SQ-INSULIN ONE ×2 (17:00→21:00)
[2019-03-01] MEDS: hydrALAzine 20 MG/ML, 1ML IV PRN (20:20)
[2019-03-02] MEDS: OXYcodone/APAP 5/325MG TABLET PO PRN ×3 (00:25→23:19)
[2019-03-02 01:07] VITALS: BP 171/96
[2019-03-02] MEDS: AMPICILLIN/SULBACTAM 3 GM in SODIUM CHLORIDE 0.9% 100 ML IV SCH ×2 (04:08→12:45)
[2019-03-02] MEDS: SODIUM CHLORIDE 0.9% 1,000 ML IV SCH ×2 (04:08→15:57)
[2019-03-02] MEDS: HEPARIN 5,000 UNITS/ML, 1ML SQ SCH ×2 (04:09→15:58)
[2019-03-02 04:42] LABS: ALBUMIN 1.2 g/dL (3.4-5.0); ANION GAP 5 mmol/L (5-15); CALCIUM 7.7 mg/dL (8.5-10.1); CHLORIDE 107 mmol/L (98-107)
[2019-03-02 04:46] LABS: ALANINE AMINOTRANSFERASE 11 U/L (12-78); ALKALINE PHOSPHATASE 97 U/L (45-117); BILIRUBIN,TOTAL 0.3 mg/dL (0.2-1.0); CREATININE 0.95 mg/dL (0.55-1.02)
[2019-03-02 04:59] LABS: BASOPHILS # (AUTO) 0.05 x10^3/uL (0-0.1); BASOPHILS % (AUTO) 1 % (0-1); EOSINOPHILS # (AUTO) 0.23 x10^3/uL (0-0.4); EOSINOPHILS % (AUTO) 2 % (1-7); LYMPHOCYTES # (AUTO) 1.93 x10^3/uL (1-3.4); LYMPHOCYTES % (AUTO) 19 % (22-44); MD NO; MEAN CORPUSCULAR HEMOGLOBIN 30.2 pg (27.0-34.8); MEAN CORPUSCULAR HGB CONC 32.5 g/dL (32.4-35.8); MEAN CORPUSCULAR VOLUME 92.8 fL (80-100); MEAN PLATELET VOLUME 7.3 fL (7.4-10.4); MONOCYTES # (AUTO) 0.76 x10^3/uL (0.2-0.8); MONOCYTES % (AUTO) 7 % (2-9); NEUTROPHILS # (AUTO) 7.32 x10^3/uL (1.8-6.8); NEUTROPHILS % (AUTO) 71 % (42-75); PLATELET COUNT 419 x10^3/uL (130-400); RED BLOOD COUNT 3.62 x10^6/uL (3.82-5.3); RED CELL DISTRIBUTION WIDTH 14.3 % (9.6-15.2)
[2019-03-02] MEDS: LEVOTHYROXINE 100 MCG TABLET PO SCH (06:07)
[2019-03-02] MEDS ORDERED: MAGNESIUM SULFATE PMX 2GM/50ML 50 ML IV ONE (07:00)
[2019-03-02 07:25] VITALS: BP 177/102
[2019-03-02] MEDS: GABAPENTIN 400 MG CAPSULE PO SCH (09:15)
[2019-03-02] MEDS: INSULIN GLARGINE 100 UNITS/ML, PEN SQ-INSULIN SCH (09:19)
[2019-03-02] MEDS: SODIUM CHLORIDE FLUSH 10ML SYR IVF SCH ×2 (09:20→21:00)
[2019-03-02] MEDS: MAGNESIUM HYDROXIDE 8%, 30ML UDC PO SCH (10:30)
[2019-03-02 13:37] VITALS: BP 177/97
[2019-03-02 18:59] VITALS: BP 187/108
[2019-03-02 19:34] VITALS: BP 183/107
[2019-03-02] MEDS: hydrALAzine 20 MG/ML, 1ML IV PRN (19:35)
[2019-03-02 20:38] VITALS: BP 148/92
[2019-03-03] MEDS: SODIUM CHLORIDE 0.9% 1,000 ML IV SCH ×3 (00:21→22:29)
[2019-03-03 00:25] VITALS: BP 154/85
[2019-03-03] MEDS: AMPICILLIN/SULBACTAM 3 GM in SODIUM CHLORIDE 0.9% 100 ML IV SCH ×3 (03:04→19:40)
[2019-03-03] MEDS: LEVOTHYROXINE 100 MCG TABLET PO SCH (05:49)
[2019-03-03 07:20] VITALS: BP 175/91
[2019-03-03] MEDS: MAGNESIUM HYDROXIDE 8%, 30ML UDC PO SCH (08:55)
[2019-03-03] MEDS: GABAPENTIN 400 MG CAPSULE PO SCH (08:55)
[2019-03-03] MEDS: HEPARIN 5,000 UNITS/ML, 1ML SQ SCH ×4 (08:56→23:38)
[2019-03-03] MEDS: INSULIN GLARGINE 100 UNITS/ML, PEN SQ-INSULIN SCH (08:58)
[2019-03-03] MEDS: SODIUM CHLORIDE FLUSH 10ML SYR IVF SCH ×2 (08:59→22:28)
[2019-03-03] MEDS: OXYcodone/APAP 5/325MG TABLET PO PRN ×2 (11:57→18:41)
[2019-03-03 13:45] VITALS: BP 146/84
[2019-03-03] MEDS ORDERED: INSULIN GLARGINE 100 UNITS/ML, PEN SQ-INSULIN SCH (21:00)
[2019-03-03 21:53] VITALS: BP 169/95
[2019-03-03 22:51] LABS: ANION GAP 4 mmol/L (5-15); CALCIUM 7.7 mg/dL (8.5-10.1); CHLORIDE 105 mmol/L (98-107)
[2019-03-04 02:53] VITALS: BP 176/90
[2019-03-04] MEDS: AMPICILLIN/SULBACTAM 3 GM in SODIUM CHLORIDE 0.9% 100 ML IV SCH ×3 (03:18→21:35)
[2019-03-04 03:24] VITALS: BP 163/81
[2019-03-04] MEDS: LEVOTHYROXINE 100 MCG TABLET PO SCH (05:33)
[2019-03-04] MEDS: SODIUM CHLORIDE 0.9% 1,000 ML IV SCH (05:34)
[2019-03-04] MEDS: OXYcodone/APAP 5/325MG TABLET PO PRN ×2 (05:34→16:41)
[2019-03-04 07:35] VITALS: BP 179/102
[2019-03-04] MEDS: HEPARIN 5,000 UNITS/ML, 1ML SQ SCH ×3 (08:00→16:50)
[2019-03-04] MEDS: SODIUM CHLORIDE FLUSH 10ML SYR IVF SCH ×2 (09:00→21:37)
[2019-03-04] MEDS: MAGNESIUM HYDROXIDE 8%, 30ML UDC PO SCH (09:00)
[2019-03-04] MEDS: GABAPENTIN 400 MG CAPSULE PO SCH (11:55)
[2019-03-04] MEDS: INSULIN GLARGINE 100 UNITS/ML, PEN SQ-INSULIN SCH ×2 (12:04→21:36)
[2019-03-04] MEDS: INSULIN LISPRO 100 UNITS/ML, PEN SQ-INSULIN SCH ×3 (12:05→21:36)
[2019-03-04] MEDS: LISINOPRIL 10 MG TABLET PO SCH ×2 (12:07→21:37)
[2019-03-04 13:29] VITALS: BP 174/92
[2019-03-04 13:36] LABS: BASOPHILS # (AUTO) 0.07 x10^3/uL (0-0.1); BASOPHILS % (AUTO) 1 % (0-1); EOSINOPHILS # (AUTO) 0.29 x10^3/uL (0-0.4); EOSINOPHILS % (AUTO) 4 % (1-7); LYMPHOCYTES # (AUTO) 1.81 x10^3/uL (1-3.4); LYMPHOCYTES % (AUTO) 23 % (22-44); MD NO; MEAN CORPUSCULAR HEMOGLOBIN 30.4 pg (27.0-34.8); MEAN CORPUSCULAR HGB CONC 32.7 g/dL (32.4-35.8); MEAN CORPUSCULAR VOLUME 93.2 fL (80-100); MEAN PLATELET VOLUME 7.5 fL (7.4-10.4); MONOCYTES # (AUTO) 0.84 x10^3/uL (0.2-0.8); MONOCYTES % (AUTO) 11 % (2-9); NEUTROPHILS # (AUTO) 4.86 x10^3/uL (1.8-6.8); NEUTROPHILS % (AUTO) 62 % (42-75); PLATELET COUNT 394 x10^3/uL (130-400); RED BLOOD COUNT 3.24 x10^6/uL (3.82-5.3); RED CELL DISTRIBUTION WIDTH 13.9 % (9.6-15.2)
[2019-03-04 13:44] LABS: ANION GAP 5 mmol/L (5-15); CHLORIDE 104 mmol/L (98-107); CREATININE 0.87 mg/dL (0.55-1.02)
[2019-03-04 20:59] VITALS: BP 152/83
[2019-03-05] MEDS: HEPARIN 5,000 UNITS/ML, 1ML SQ SCH ×3 (00:21→16:29)
[2019-03-05] MEDS: OXYcodone/APAP 5/325MG TABLET PO PRN ×2 (00:21→21:26)
[2019-03-05 05:00] VITALS: BP 136/77
[2019-03-05] MEDS: AMPICILLIN/SULBACTAM 3 GM in SODIUM CHLORIDE 0.9% 100 ML IV SCH ×2 (05:54→15:20)
[2019-03-05] MEDS: LEVOTHYROXINE 100 MCG TABLET PO SCH (05:55)
[2019-03-05] MEDS: INSULIN LISPRO 100 UNITS/ML, PEN SQ-INSULIN SCH ×4 (07:00→21:18)
[2019-03-05] MEDS: GABAPENTIN 400 MG CAPSULE PO SCH (08:33)
[2019-03-05] MEDS: LISINOPRIL 10 MG TABLET PO SCH ×2 (08:33→20:21)
[2019-03-05] MEDS: INSULIN GLARGINE 100 UNITS/ML, PEN SQ-INSULIN SCH ×2 (08:34→21:18)
[2019-03-05] MEDS: MAGNESIUM HYDROXIDE 8%, 30ML UDC PO SCH (08:36)
[2019-03-05] MEDS: SODIUM CHLORIDE FLUSH 10ML SYR IVF SCH ×2 (08:36→20:21)
[2019-03-05 09:02] VITALS: BP 172/83
[2019-03-05 15:30] VITALS: BP 165/85
[2019-03-05 21:08] VITALS: BP 164/91
[2019-03-06] MEDS: AMPICILLIN/SULBACTAM 3 GM in SODIUM CHLORIDE 0.9% 100 ML IV SCH ×3 (00:16→15:35)
[2019-03-06] MEDS: HEPARIN 5,000 UNITS/ML, 1ML SQ SCH ×3 (00:16→20:57)
[2019-03-06 02:58] VITALS: BP 100/83
[2019-03-06 05:18] LABS: BASOPHILS # (AUTO) 0.11 x10^3/uL (0-0.1); BASOPHILS % (AUTO) 2 % (0-1); EOSINOPHILS # (AUTO) 0.26 x10^3/uL (0-0.4); EOSINOPHILS % (AUTO) 4 % (1-7); LYMPHOCYTES # (AUTO) 2.03 x10^3/uL (1-3.4); LYMPHOCYTES % (AUTO) 28 % (22-44); MD NO; MEAN CORPUSCULAR HEMOGLOBIN 30.3 pg (27.0-34.8); MEAN CORPUSCULAR HGB CONC 32.4 g/dL (32.4-35.8); MEAN CORPUSCULAR VOLUME 93.7 fL (80-100); MEAN PLATELET VOLUME 7.4 fL (7.4-10.4); MONOCYTES # (AUTO) 0.94 x10^3/uL (0.2-0.8); MONOCYTES % (AUTO) 13 % (2-9); NEUTROPHILS # (AUTO) 3.97 x10^3/uL (1.8-6.8); NEUTROPHILS % (AUTO) 54 % (42-75); PLATELET COUNT 416 x10^3/uL (130-400); RED BLOOD COUNT 3.08 x10^6/uL (3.82-5.3); RED CELL DISTRIBUTION WIDTH 14.2 % (9.6-15.2)
[2019-03-06 05:27] LABS: ALBUMIN 1.4 g/dL (3.4-5.0); ANION GAP 3 mmol/L (5-15); CALCIUM 7.9 mg/dL (8.5-10.1); CHLORIDE 103 mmol/L (98-107)
[2019-03-06 05:35] LABS: ALANINE AMINOTRANSFERASE 19 U/L (12-78); ALKALINE PHOSPHATASE 102 U/L (45-117); BILIRUBIN,TOTAL 0.1 mg/dL (0.2-1.0); CREATININE 0.98 mg/dL (0.55-1.02); TOTAL PROTEIN 6.2 g/dL (6.4-8.2)
[2019-03-06] MEDS: LEVOTHYROXINE 100 MCG TABLET PO SCH (05:40)
[2019-03-06] MEDS: OXYcodone/APAP 5/325MG TABLET PO PRN ×3 (05:45→22:03)
[2019-03-06 05:56] LABS: HCT (SEDRATE) 28.9 % (34.6-47.8)
[2019-03-06] MEDS: INSULIN LISPRO 100 UNITS/ML, PEN SQ-INSULIN SCH ×4 (07:43→21:12)
[2019-03-06 08:08] VITALS: BP 191/121
[2019-03-06] MEDS: MAGNESIUM HYDROXIDE 8%, 30ML UDC PO SCH (08:47)
[2019-03-06] MEDS: LISINOPRIL 10 MG TABLET PO SCH ×2 (08:47→20:58)
[2019-03-06] MEDS: GABAPENTIN 400 MG CAPSULE PO SCH (08:47)
[2019-03-06] MEDS: INSULIN GLARGINE 100 UNITS/ML, PEN SQ-INSULIN SCH ×2 (08:49→21:12)
[2019-03-06] MEDS: SODIUM CHLORIDE FLUSH 10ML SYR IVF SCH ×2 (08:50→20:58)
[2019-03-06 09:51] VITALS: BP 161/89
[2019-03-06] MEDS ORDERED: FUROSEMIDE 20 MG/2 ML IV ONE (10:00)
[2019-03-06 12:54] VITALS: BP 197/93
[2019-03-06] MEDS: hydrALAzine 20 MG/ML, 1ML IV PRN (15:35)
[2019-03-06 19:19] VITALS: BP 137/69
[2019-03-07] MEDS: AMPICILLIN/SULBACTAM 3 GM in SODIUM CHLORIDE 0.9% 100 ML IV SCH ×3 (00:03→18:01)
[2019-03-07 01:32] VITALS: BP 97/57
[2019-03-07] MEDS: HEPARIN 5,000 UNITS/ML, 1ML SQ SCH ×3 (04:52→21:09)
[2019-03-07 05:28] LABS: BASOPHILS # (AUTO) 0.08 x10^3/uL (0-0.1); BASOPHILS % (AUTO) 1 % (0-1); EOSINOPHILS # (AUTO) 0.15 x10^3/uL (0-0.4); EOSINOPHILS % (AUTO) 2 % (1-7); LYMPHOCYTES # (AUTO) 1.73 x10^3/uL (1-3.4); LYMPHOCYTES % (AUTO) 25 % (22-44); MD NO; MEAN CORPUSCULAR VOLUME 93.9 fL (80-100); MEAN PLATELET VOLUME 7.8 fL (7.4-10.4); MONOCYTES % (AUTO) 15 % (2-9); NEUTROPHILS # (AUTO) 3.94 x10^3/uL (1.8-6.8); NEUTROPHILS % (AUTO) 57 % (42-75); PLATELET COUNT 465 x10^3/uL (130-400); RED BLOOD COUNT 3.18 x10^6/uL (3.82-5.3); RED CELL DISTRIBUTION WIDTH 14.7 % (9.6-15.2)
[2019-03-07 05:44] LABS: CHLORIDE 103 mmol/L (98-107)
[2019-03-07 05:55] LABS: ALANINE AMINOTRANSFERASE 18 U/L (12-78); ALBUMIN 1.4 g/dL (3.4-5.0); ALKALINE PHOSPHATASE 96 U/L (45-117); ANION GAP 5 mmol/L (5-15); BILIRUBIN,TOTAL 0.1 mg/dL (0.2-1.0); CALCIUM 8.1 mg/dL (8.5-10.1); CREATININE 0.93 mg/dL (0.55-1.02); TOTAL PROTEIN 6.3 g/dL (6.4-8.2)
[2019-03-07] MEDS: LEVOTHYROXINE 100 MCG TABLET PO SCH (06:09)
[2019-03-07 07:44] VITALS: BP 165/83
[2019-03-07] MEDS: GABAPENTIN 400 MG CAPSULE PO SCH (08:16)
[2019-03-07] MEDS: SODIUM CHLORIDE FLUSH 10ML SYR IVF SCH ×2 (08:17→21:08)
[2019-03-07] MEDS: LISINOPRIL 10 MG TABLET PO SCH ×2 (08:20→21:09)
[2019-03-07] MEDS: INSULIN LISPRO 100 UNITS/ML, PEN SQ-INSULIN SCH ×4 (08:21→21:09)
[2019-03-07] MEDS: MAGNESIUM HYDROXIDE 8%, 30ML UDC PO SCH (08:22)
[2019-03-07] MEDS: ACETAMINOPHEN 325 MG TABLET PO PRN (08:32)
[2019-03-07] MEDS: OXYcodone/APAP 5/325MG TABLET PO PRN ×2 (09:08→21:08)
[2019-03-07] MEDS: INSULIN GLARGINE 100 UNITS/ML, PEN SQ-INSULIN SCH ×2 (09:11→21:10)
[2019-03-07] MEDS ORDERED: MAGNESIUM SULFATE PMX 2GM/50ML 50 ML IV ONE (09:30)
[2019-03-07 14:47] VITALS: BP 152/99
[2019-03-07 19:15] VITALS: BP 173/96
[2019-03-08 01:03] VITALS: BP 137/72
[2019-03-08] MEDS: AMPICILLIN/SULBACTAM 3 GM in SODIUM CHLORIDE 0.9% 100 ML IV SCH ×3 (02:13→17:27)
[2019-03-08] MEDS: LEVOTHYROXINE 100 MCG TABLET PO SCH (05:35)
[2019-03-08] MEDS: HEPARIN 5,000 UNITS/ML, 1ML SQ SCH ×2 (05:35→16:03)
[2019-03-08 08:15] VITALS: BP 138/100
[2019-03-08] MEDS: LISINOPRIL 10 MG TABLET PO SCH ×2 (08:20→21:04)
[2019-03-08] MEDS: GABAPENTIN 400 MG CAPSULE PO SCH (08:20)
[2019-03-08] MEDS: INSULIN GLARGINE 100 UNITS/ML, PEN SQ-INSULIN SCH ×2 (08:31→21:05)
[2019-03-08] MEDS: INSULIN LISPRO 100 UNITS/ML, PEN SQ-INSULIN SCH ×4 (08:31→21:05)
[2019-03-08] MEDS: SODIUM CHLORIDE FLUSH 10ML SYR IVF SCH ×2 (08:32→21:00)
[2019-03-08] MEDS: MAGNESIUM HYDROXIDE 8%, 30ML UDC PO SCH (08:32)
[2019-03-08] MEDS: OXYcodone/APAP 5/325MG TABLET PO PRN ×2 (10:32→21:04)
[2019-03-08 13:40] VITALS: BP_SYST 144; BP_SYST 147; BP_DIAS 80
[2019-03-08 20:24] VITALS: BP 189/102
[2019-03-09] MEDS: AMPICILLIN/SULBACTAM 3 GM in SODIUM CHLORIDE 0.9% 100 ML IV SCH ×3 (01:59→17:54)
[2019-03-09] MEDS: HEPARIN 5,000 UNITS/ML, 1ML SQ SCH ×3 (01:59→17:54)
[2019-03-09 03:55] VITALS: BP 179/111
[2019-03-09] MEDS: OXYcodone/APAP 5/325MG TABLET PO PRN ×3 (04:12→17:09)
[2019-03-09 04:34] LABS: BASOPHILS # (AUTO) 0.06 x10^3/uL (0-0.1); BASOPHILS % (AUTO) 1 % (0-1); EOSINOPHILS # (AUTO) 0.13 x10^3/uL (0-0.4); EOSINOPHILS % (AUTO) 2 % (1-7); LYMPHOCYTES # (AUTO) 1.54 x10^3/uL (1-3.4); LYMPHOCYTES % (AUTO) 28 % (22-44); MD NO; MEAN CORPUSCULAR HEMOGLOBIN 30.4 pg (27.0-34.8); MEAN CORPUSCULAR HGB CONC 32.2 g/dL (32.4-35.8); MEAN CORPUSCULAR VOLUME 94.4 fL (80-100); MEAN PLATELET VOLUME 7.9 fL (7.4-10.4); MONOCYTES # (AUTO) 0.83 x10^3/uL (0.2-0.8); MONOCYTES % (AUTO) 15 % (2-9); NEUTROPHILS # (AUTO) 3.01 x10^3/uL (1.8-6.8); NEUTROPHILS % (AUTO) 54 % (42-75); PLATELET COUNT 506 x10^3/uL (130-400); RED BLOOD COUNT 2.91 x10^6/uL (3.82-5.3); RED CELL DISTRIBUTION WIDTH 14.9 % (9.6-15.2)
[2019-03-09 04:37] LABS: ALBUMIN 1.4 g/dL (3.4-5.0)
[2019-03-09 04:42] LABS: ALANINE AMINOTRANSFERASE 18 U/L (12-78); ALKALINE PHOSPHATASE 121 U/L (45-117); TOTAL PROTEIN 6.4 g/dL (6.4-8.2)
[2019-03-09 04:53] LABS: ANION GAP 5 mmol/L (5-15); CHLORIDE 99 mmol/L (98-107)
[2019-03-09 04:56] LABS: BILIRUBIN,TOTAL < 0.1 mg/dL (0.2-1.0)
[2019-03-09 05:25] VITALS: BP 170/88
[2019-03-09] MEDS: LEVOTHYROXINE 100 MCG TABLET PO SCH (06:02)
[2019-03-09] MEDS ORDERED: MAGNESIUM SULFATE PMX 2GM/50ML 50 ML IV ONE (07:00)
[2019-03-09] MEDS: INSULIN LISPRO 100 UNITS/ML, PEN SQ-INSULIN SCH ×4 (07:46→21:08)
[2019-03-09] MEDS: INSULIN GLARGINE 100 UNITS/ML, PEN SQ-INSULIN SCH ×2 (07:47→21:07)
[2019-03-09] MEDS: LISINOPRIL 10 MG TABLET PO SCH ×2 (07:47→21:06)
[2019-03-09] MEDS: MAGNESIUM HYDROXIDE 8%, 30ML UDC PO SCH ×2 (07:47→07:49)
[2019-03-09] MEDS: MAGNESIUM OXIDE 400 MG TABLET PO SCH (07:48)
[2019-03-09] MEDS: GABAPENTIN 400 MG CAPSULE PO SCH (07:48)
[2019-03-09] MEDS: SODIUM CHLORIDE FLUSH 10ML SYR IVF SCH ×2 (07:49→21:06)
[2019-03-09 08:56] VITALS: BP 170/99
[2019-03-09] MEDS ORDERED: SODIUM CHLORIDE 0.9% 1,000 ML IV SCH (13:00)
[2019-03-09 14:46] VITALS: BP 132/77
[2019-03-09 20:03] VITALS: BP 151/83
[2019-03-10] MEDS: AMPICILLIN/SULBACTAM 3 GM in SODIUM CHLORIDE 0.9% 100 ML IV SCH ×3 (01:54→18:25)
[2019-03-10] MEDS: HEPARIN 5,000 UNITS/ML, 1ML SQ SCH ×3 (01:55→18:25)
[2019-03-10] MEDS: OXYcodone/APAP 5/325MG TABLET PO PRN ×3 (01:55→16:31)
[2019-03-10 03:30] VITALS: BP 155/83
[2019-03-10] MEDS: LEVOTHYROXINE 100 MCG TABLET PO SCH (04:56)
[2019-03-10 05:33] LABS: ANION GAP 5 mmol/L (5-15); CALCIUM 8.1 mg/dL (8.5-10.1); CHLORIDE 98 mmol/L (98-107); CREATININE 1.07 mg/dL (0.55-1.02)
[2019-03-10 05:38] LABS: BASOPHILS # (AUTO) 0.05 x10^3/uL (0-0.1); BASOPHILS % (AUTO) 1 % (0-1); EOSINOPHILS % (AUTO) 2 % (1-7); LYMPHOCYTES % (AUTO) 28 % (22-44); MD NO; MEAN CORPUSCULAR HEMOGLOBIN 30.1 pg (27.0-34.8); MEAN CORPUSCULAR HGB CONC 31.9 g/dL (32.4-35.8); MEAN CORPUSCULAR VOLUME 94.3 fL (80-100); MEAN PLATELET VOLUME 7.8 fL (7.4-10.4); MONOCYTES # (AUTO) 0.58 x10^3/uL (0.2-0.8); MONOCYTES % (AUTO) 12 % (2-9); NEUTROPHILS # (AUTO) 2.86 x10^3/uL (1.8-6.8); NEUTROPHILS % (AUTO) 57 % (42-75); PLATELET COUNT 506 x10^3/uL (130-400); RED BLOOD COUNT 2.94 x10^6/uL (3.82-5.3)
[2019-03-10 08:00] VITALS: BP 145/82
[2019-03-10] MEDS: MAGNESIUM HYDROXIDE 8%, 30ML UDC PO SCH (08:01)
[2019-03-10] MEDS: GABAPENTIN 400 MG CAPSULE PO SCH (08:01)
[2019-03-10] MEDS: MAGNESIUM OXIDE 400 MG TABLET PO SCH (08:01)
[2019-03-10] MEDS: LISINOPRIL 10 MG TABLET PO SCH ×2 (08:01→22:04)
[2019-03-10] MEDS: INSULIN GLARGINE 100 UNITS/ML, PEN SQ-INSULIN SCH ×2 (08:03→22:08)
[2019-03-10] MEDS: INSULIN LISPRO 100 UNITS/ML, PEN SQ-INSULIN SCH ×4 (08:03→22:09)
[2019-03-10] MEDS: SODIUM CHLORIDE FLUSH 10ML SYR IVF SCH ×2 (08:04→22:04)
[2019-03-10 14:00] VITALS: BP 135/80
[2019-03-10 19:32] VITALS: BP 170/74
[2019-03-11] MEDS: OXYcodone/APAP 5/325MG TABLET PO PRN ×3 (01:23→21:08)
[2019-03-11 01:38] VITALS: BP 179/95
[2019-03-11] MEDS: HEPARIN 5,000 UNITS/ML, 1ML SQ SCH ×3 (02:08→18:02)
[2019-03-11] MEDS: AMPICILLIN/SULBACTAM 3 GM in SODIUM CHLORIDE 0.9% 100 ML IV SCH ×3 (02:08→18:02)
[2019-03-11 05:41] LABS: ANION GAP 5 mmol/L (5-15); BASOPHILS # (AUTO) 0.05 x10^3/uL (0-0.1); BASOPHILS % (AUTO) 1 % (0-1); CALCIUM 7.8 mg/dL (8.5-10.1); CHLORIDE 102 mmol/L (98-107); EOSINOPHILS # (AUTO) 0.07 x10^3/uL (0-0.4); EOSINOPHILS % (AUTO) 2 % (1-7); LYMPHOCYTES # (AUTO) 1.81 x10^3/uL (1-3.4); LYMPHOCYTES % (AUTO) 39 % (22-44); MD NO; MEAN CORPUSCULAR HEMOGLOBIN 29.9 pg (27.0-34.8); MEAN CORPUSCULAR HGB CONC 32.4 g/dL (32.4-35.8); MEAN CORPUSCULAR VOLUME 92.4 fL (80-100); MEAN PLATELET VOLUME 7.5 fL (7.4-10.4); MONOCYTES # (AUTO) 0.54 x10^3/uL (0.2-0.8); MONOCYTES % (AUTO) 12 % (2-9); NEUTROPHILS # (AUTO) 2.16 x10^3/uL (1.8-6.8); NEUTROPHILS % (AUTO) 47 % (42-75); PLATELET COUNT 476 x10^3/uL (130-400); RED BLOOD COUNT 2.98 x10^6/uL (3.82-5.3); RED CELL DISTRIBUTION WIDTH 15.6 % (9.6-15.2)
[2019-03-11] MEDS: LEVOTHYROXINE 100 MCG TABLET PO SCH (06:36)
[2019-03-11] MEDS: INSULIN LISPRO 100 UNITS/ML, PEN SQ-INSULIN SCH ×4 (07:00→20:51)
[2019-03-11 07:23] VITALS: BP 186/94
[2019-03-11] MEDS: AMLODIPINE 2.5 MG TABLET PO SCH (09:05)
[2019-03-11] MEDS: MAGNESIUM OXIDE 400 MG TABLET PO SCH (09:05)
[2019-03-11] MEDS: LISINOPRIL 10 MG TABLET PO SCH ×2 (09:05→20:54)
[2019-03-11] MEDS: SODIUM CHLORIDE FLUSH 10ML SYR IVF SCH ×2 (09:06→20:58)
[2019-03-11] MEDS: MAGNESIUM HYDROXIDE 8%, 30ML UDC PO SCH (09:06)
[2019-03-11] MEDS: INSULIN GLARGINE 100 UNITS/ML, PEN SQ-INSULIN SCH ×2 (09:07→20:56)
[2019-03-11] MEDS: GABAPENTIN 400 MG CAPSULE PO SCH (09:09)
[2019-03-11 14:00] VITALS: BP 155/79
[2019-03-11 19:37] VITALS: BP 145/61
[2019-03-12] MEDS: AMPICILLIN/SULBACTAM 3 GM in SODIUM CHLORIDE 0.9% 100 ML IV SCH ×3 (01:37→18:06)
[2019-03-12] MEDS: HEPARIN 5,000 UNITS/ML, 1ML SQ SCH ×2 (01:37→13:41)
[2019-03-12 02:29] VITALS: BP 176/96
[2019-03-12 04:11] VITALS: BP 190/112
[2019-03-12] MEDS: hydrALAzine 20 MG/ML, 1ML IV PRN (04:19)
[2019-03-12 05:01] VITALS: BP 165/80
[2019-03-12 05:05] LABS: BASOPHILS # (AUTO) 0.05 x10^3/uL (0-0.1); BASOPHILS % (AUTO) 1 % (0-1); EOSINOPHILS # (AUTO) 0.11 x10^3/uL (0-0.4); EOSINOPHILS % (AUTO) 2 % (1-7); LYMPHOCYTES # (AUTO) 1.74 x10^3/uL (1-3.4); LYMPHOCYTES % (AUTO) 37 % (22-44); MD NO; MEAN CORPUSCULAR HEMOGLOBIN 30.2 pg (27.0-34.8); MEAN CORPUSCULAR HGB CONC 31.8 g/dL (32.4-35.8); MEAN CORPUSCULAR VOLUME 94.9 fL (80-100); MEAN PLATELET VOLUME 7.9 fL (7.4-10.4); MONOCYTES # (AUTO) 0.34 x10^3/uL (0.2-0.8); MONOCYTES % (AUTO) 7 % (2-9); NEUTROPHILS # (AUTO) 2.47 x10^3/uL (1.8-6.8); NEUTROPHILS % (AUTO) 53 % (42-75); PLATELET COUNT 513 x10^3/uL (130-400); RED BLOOD COUNT 3.16 x10^6/uL (3.82-5.3); RED CELL DISTRIBUTION WIDTH 15.8 % (9.6-15.2)
[2019-03-12 05:15] LABS: ANION GAP 5 mmol/L (5-15); CHLORIDE 101 mmol/L (98-107); CREATININE 1.01 mg/dL (0.55-1.02)
[2019-03-12 07:29] VITALS: BP 172/77
[2019-03-12] MEDS ORDERED: ACETAMINOPHEN 325 MG TABLET PO PRN (07:30)
[2019-03-12] MEDS: LISINOPRIL 10 MG TABLET PO SCH ×2 (08:15→21:47)
[2019-03-12] MEDS: AMLODIPINE 2.5 MG TABLET PO SCH (08:15)
[2019-03-12] MEDS: GABAPENTIN 400 MG CAPSULE PO SCH (08:16)
[2019-03-12] MEDS: MAGNESIUM OXIDE 400 MG TABLET PO SCH (08:16)
[2019-03-12] MEDS: CARVEDILOL 3.125 MG TABLET PO SCH ×2 (08:16→18:06)
[2019-03-12] MEDS: LEVOTHYROXINE 100 MCG TABLET PO SCH (08:16)
[2019-03-12] MEDS: MAGNESIUM HYDROXIDE 8%, 30ML UDC PO SCH (08:18)
[2019-03-12] MEDS: SODIUM CHLORIDE FLUSH 10ML SYR IVF SCH ×2 (08:18→21:47)
[2019-03-12] MEDS: INSULIN GLARGINE 100 UNITS/ML, PEN SQ-INSULIN SCH ×2 (08:18→21:43)
[2019-03-12] MEDS: OXYcodone/APAP 5/325MG TABLET PO PRN ×2 (10:24→21:39)
[2019-03-12] MEDS: INSULIN LISPRO 100 UNITS/ML, PEN SQ-INSULIN SCH ×3 (12:01→21:44)
[2019-03-12] MEDS: ACETAMINOPHEN 325 MG TABLET PO SCH ×2 (13:30→18:17)
[2019-03-12] MEDS: CYCLOBENZAPRINE 10 MG TABLET PO PRN (13:41)
[2019-03-12 13:53] VITALS: BP 156/71
[2019-03-12 18:51] VITALS: BP 151/83
[2019-03-13 01:14] VITALS: BP 154/83
[2019-03-13] MEDS: HEPARIN 5,000 UNITS/ML, 1ML SQ SCH ×2 (01:57→14:00)
[2019-03-13] MEDS: AMPICILLIN/SULBACTAM 3 GM in SODIUM CHLORIDE 0.9% 100 ML IV SCH ×3 (01:57→17:35)
[2019-03-13] MEDS: ACETAMINOPHEN 325 MG TABLET PO SCH ×4 (01:59→20:02)
[2019-03-13 04:56] VITALS: BP 161/90
[2019-03-13] MEDS: LEVOTHYROXINE 100 MCG TABLET PO SCH (04:59)
[2019-03-13] MEDS: CARVEDILOL 3.125 MG TABLET PO SCH ×2 (05:00→17:10)
[2019-03-13 05:14] LABS: % IRON SATURATION 22 % (20-55); ALANINE AMINOTRANSFERASE 15 U/L (12-78); ALBUMIN 1.4 g/dL (3.4-5.0); CALCIUM 7.8 mg/dL (8.5-10.1); CHLORIDE 106 mmol/L (98-107); IRON LEVEL 44 mcg/dL (50-170); TOTAL IRON BINDING CAPACITY 197 mcg/dL (250-450)
[2019-03-13 05:25] LABS: ALKALINE PHOSPHATASE 93 U/L (45-117); ANION GAP 4 mmol/L (5-15); BILIRUBIN,TOTAL 0.2 mg/dL (0.2-1.0); TOTAL PROTEIN 6.2 g/dL (6.4-8.2)
[2019-03-13] MEDS: INSULIN LISPRO 100 UNITS/ML, PEN SQ-INSULIN SCH ×4 (07:00→20:19)
[2019-03-13 07:45] VITALS: BP 178/90
[2019-03-13] MEDS: MAGNESIUM OXIDE 400 MG TABLET PO SCH (08:13)
[2019-03-13] MEDS: GABAPENTIN 400 MG CAPSULE PO SCH (08:13)
[2019-03-13] MEDS: INSULIN GLARGINE 100 UNITS/ML, PEN SQ-INSULIN SCH (08:14)
[2019-03-13] MEDS: LISINOPRIL 10 MG TABLET PO SCH ×2 (08:14→20:13)
[2019-03-13] MEDS: OXYcodone/APAP 5/325MG TABLET PO PRN ×2 (08:20→20:14)
[2019-03-13] MEDS: SODIUM CHLORIDE FLUSH 10ML SYR IVF SCH ×2 (08:23→20:37)
[2019-03-13 12:59] VITALS: BP 157/93
[2019-03-13] MEDS: CYCLOBENZAPRINE 10 MG TABLET PO PRN (14:00)
[2019-03-13 19:39] VITALS: BP 150/81
[2019-03-14 01:15] VITALS: BP 156/85
[2019-03-14] MEDS: ACETAMINOPHEN 325 MG TABLET PO SCH ×4 (02:02→21:23)
[2019-03-14] MEDS: AMPICILLIN/SULBACTAM 3 GM in SODIUM CHLORIDE 0.9% 100 ML IV SCH ×3 (02:14→18:13)
[2019-03-14] MEDS: HEPARIN 5,000 UNITS/ML, 1ML SQ SCH ×2 (02:14→12:37)
[2019-03-14] MEDS: CARVEDILOL 3.125 MG TABLET PO SCH ×2 (05:09→16:59)
[2019-03-14] MEDS: LEVOTHYROXINE 100 MCG TABLET PO SCH (05:10)
[2019-03-14] MEDS: INSULIN LISPRO 100 UNITS/ML, PEN SQ-INSULIN SCH ×4 (07:00→21:24)
[2019-03-14] MEDS: ISOSORBIDE DINITRATE 10 MG TABLET PO SCH ×3 (08:06→21:24)
[2019-03-14] MEDS: LACTOBACILLUS CHEW TABLET PO SCH ×3 (08:06→21:23)
[2019-03-14] MEDS: LISINOPRIL 10 MG TABLET PO SCH ×2 (08:06→21:23)
[2019-03-14] MEDS: GABAPENTIN 400 MG CAPSULE PO SCH (08:06)
[2019-03-14] MEDS: INSULIN GLARGINE 100 UNITS/ML, PEN SQ-INSULIN SCH (08:07)
[2019-03-14 08:35] VITALS: BP 136/69
[2019-03-14] MEDS: CYCLOBENZAPRINE 10 MG TABLET PO PRN (08:44)
[2019-03-14] MEDS: SODIUM CHLORIDE FLUSH 10ML SYR IVF SCH ×2 (09:00→21:22)
[2019-03-14] MEDS ORDERED: OXYcodone/APAP 5/325MG TABLET PO PRN (11:00)
[2019-03-14 13:46] VITALS: BP 124/67
[2019-03-14 19:07] VITALS: BP 100/56
[2019-03-15 01:13] VITALS: BP 158/75
[2019-03-15] MEDS: HEPARIN 5,000 UNITS/ML, 1ML SQ SCH ×2 (01:41→14:00)
[2019-03-15] MEDS: AMPICILLIN/SULBACTAM 3 GM in SODIUM CHLORIDE 0.9% 100 ML IV SCH ×3 (01:41→18:45)
[2019-03-15] MEDS: ACETAMINOPHEN 325 MG TABLET PO SCH ×4 (03:36→21:46)
[2019-03-15 04:05] LABS: BASOPHILS # (AUTO) 0.06 x10^3/uL (0-0.1); BASOPHILS % (AUTO) 1 % (0-1); EOSINOPHILS # (AUTO) 0.27 x10^3/uL (0-0.4); EOSINOPHILS % (AUTO) 5 % (1-7); LYMPHOCYTES # (AUTO) 1.98 x10^3/uL (1-3.4); LYMPHOCYTES % (AUTO) 35 % (22-44); MD NO; MEAN CORPUSCULAR HEMOGLOBIN 30.2 pg (27.0-34.8); MEAN CORPUSCULAR HGB CONC 31.9 g/dL (32.4-35.8); MEAN CORPUSCULAR VOLUME 94.9 fL (80-100); MEAN PLATELET VOLUME 7.8 fL (7.4-10.4); MONOCYTES # (AUTO) 0.49 x10^3/uL (0.2-0.8); MONOCYTES % (AUTO) 9 % (2-9); NEUTROPHILS # (AUTO) 2.86 x10^3/uL (1.8-6.8); NEUTROPHILS % (AUTO) 51 % (42-75); PLATELET COUNT 528 x10^3/uL (130-400); RED BLOOD COUNT 3.11 x10^6/uL (3.82-5.3); RED CELL DISTRIBUTION WIDTH 16.5 % (9.6-15.2)
[2019-03-15 04:16] LABS: ANION GAP 4 mmol/L (5-15); CALCIUM 7.7 mg/dL (8.5-10.1); CHLORIDE 107 mmol/L (98-107); CREATININE 1.27 mg/dL (0.55-1.02)
[2019-03-15] MEDS: LEVOTHYROXINE 100 MCG TABLET PO SCH (05:43)
[2019-03-15] MEDS: CARVEDILOL 3.125 MG TABLET PO SCH ×2 (05:43→18:45)
[2019-03-15 07:40] VITALS: BP 174/98
[2019-03-15] MEDS: GABAPENTIN 400 MG CAPSULE PO SCH (07:57)
[2019-03-15] MEDS: ISOSORBIDE DINITRATE 10 MG TABLET PO SCH ×3 (07:57→21:45)
[2019-03-15] MEDS: SODIUM CHLORIDE FLUSH 10ML SYR IVF SCH ×2 (07:58→21:48)
[2019-03-15] MEDS: LACTOBACILLUS CHEW TABLET PO SCH ×3 (07:58→21:44)
[2019-03-15] MEDS: LISINOPRIL 10 MG TABLET PO SCH ×2 (07:58→21:45)
[2019-03-15] MEDS: INSULIN LISPRO 100 UNITS/ML, PEN SQ-INSULIN SCH ×4 (07:59→21:46)
[2019-03-15] MEDS: INSULIN GLARGINE 100 UNITS/ML, PEN SQ-INSULIN SCH (09:45)
[2019-03-15 16:07] VITALS: BP 181/81
[2019-03-15 20:12] VITALS: BP 138/65
[2019-03-15] MEDS: CYCLOBENZAPRINE 10 MG TABLET PO PRN (21:46)
[2019-03-16] MEDS: AMPICILLIN/SULBACTAM 3 GM in SODIUM CHLORIDE 0.9% 100 ML IV SCH ×3 (02:25→17:56)
[2019-03-16] MEDS: HEPARIN 5,000 UNITS/ML, 1ML SQ SCH ×2 (02:25→14:00)
[2019-03-16 02:30] VITALS: BP 173/81
[2019-03-16] MEDS: CARVEDILOL 3.125 MG TABLET PO SCH ×2 (05:36→17:57)
[2019-03-16] MEDS: ACETAMINOPHEN 325 MG TABLET PO SCH ×4 (05:36→23:30)
[2019-03-16] MEDS: LEVOTHYROXINE 100 MCG TABLET PO SCH (05:36)
[2019-03-16] MEDS: OXYcodone/APAP 5/325MG TABLET PO PRN (06:30)
[2019-03-16 06:54] VITALS: BP 180/86
[2019-03-16] MEDS: LACTOBACILLUS CHEW TABLET PO SCH ×3 (09:04→21:21)
[2019-03-16] MEDS: GABAPENTIN 400 MG CAPSULE PO SCH (09:05)
[2019-03-16] MEDS: LISINOPRIL 10 MG TABLET PO SCH ×2 (09:05→21:23)
[2019-03-16] MEDS: SODIUM CHLORIDE FLUSH 10ML SYR IVF SCH ×2 (09:06→21:15)
[2019-03-16] MEDS: ISOSORBIDE DINITRATE 10 MG TABLET PO SCH ×3 (09:06→21:20)
[2019-03-16] MEDS: INSULIN GLARGINE 100 UNITS/ML, PEN SQ-INSULIN SCH (09:07)
[2019-03-16] MEDS: INSULIN LISPRO 100 UNITS/ML, PEN SQ-INSULIN SCH ×4 (09:07→21:00)
[2019-03-16 12:23] VITALS: BP 154/79
[2019-03-16 20:09] VITALS: BP 136/67
[2019-03-16 20:15] VITALS: BP 137/63
[2019-03-17] MEDS: AMPICILLIN/SULBACTAM 3 GM in SODIUM CHLORIDE 0.9% 100 ML IV SCH ×3 (02:13→18:02)
[2019-03-17] MEDS: HEPARIN 5,000 UNITS/ML, 1ML SQ SCH ×2 (02:13→14:52)
[2019-03-17] MEDS: OXYcodone/APAP 5/325MG TABLET PO PRN ×3 (02:17→19:29)
[2019-03-17 02:29] VITALS: BP 152/78
[2019-03-17 05:54] VITALS: BP 184/78
[2019-03-17] MEDS: LEVOTHYROXINE 100 MCG TABLET PO SCH (05:57)
[2019-03-17] MEDS: ACETAMINOPHEN 325 MG TABLET PO SCH ×4 (05:57→23:39)
[2019-03-17] MEDS: CARVEDILOL 3.125 MG TABLET PO SCH ×2 (05:57→18:02)
[2019-03-17] MEDS: INSULIN LISPRO 100 UNITS/ML, PEN SQ-INSULIN SCH ×4 (07:00→21:19)
[2019-03-17] MEDS: GABAPENTIN 400 MG CAPSULE PO SCH (07:30)
[2019-03-17] MEDS: ISOSORBIDE DINITRATE 10 MG TABLET PO SCH ×3 (07:30→21:16)
[2019-03-17] MEDS: LACTOBACILLUS CHEW TABLET PO SCH ×3 (07:30→21:16)
[2019-03-17] MEDS: LISINOPRIL 10 MG TABLET PO SCH ×2 (07:31→21:17)
[2019-03-17] MEDS: SODIUM CHLORIDE FLUSH 10ML SYR IVF SCH ×2 (07:44→21:16)
[2019-03-17 07:47] VITALS: BP 146/75
[2019-03-17] MEDS: INSULIN GLARGINE 100 UNITS/ML, PEN SQ-INSULIN SCH (09:14)
[2019-03-17 13:35] VITALS: BP 121/70
[2019-03-17] MEDS: CYCLOBENZAPRINE 10 MG TABLET PO PRN (14:51)
[2019-03-17 19:16] VITALS: BP 114/58
[2019-03-18 01:54] VITALS: BP 136/75
[2019-03-18] MEDS: AMPICILLIN/SULBACTAM 3 GM in SODIUM CHLORIDE 0.9% 100 ML IV SCH ×4 (01:55→19:00)
[2019-03-18] MEDS: HEPARIN 5,000 UNITS/ML, 1ML SQ SCH ×2 (01:58→14:27)
[2019-03-18] MEDS: OXYcodone/APAP 5/325MG TABLET PO PRN ×3 (04:21→23:33)
[2019-03-18] MEDS: CARVEDILOL 3.125 MG TABLET PO SCH ×2 (06:36→17:07)
[2019-03-18] MEDS: ACETAMINOPHEN 325 MG TABLET PO SCH ×4 (06:36→23:32)
[2019-03-18] MEDS: LEVOTHYROXINE 100 MCG TABLET PO SCH (06:36)
[2019-03-18] MEDS: INSULIN LISPRO 100 UNITS/ML, PEN SQ-INSULIN SCH ×4 (07:00→21:56)
[2019-03-18] MEDS: GABAPENTIN 400 MG CAPSULE PO SCH (07:32)
[2019-03-18] MEDS: SODIUM CHLORIDE FLUSH 10ML SYR IVF SCH ×2 (07:32→21:55)
[2019-03-18] MEDS: ISOSORBIDE DINITRATE 10 MG TABLET PO SCH ×3 (07:32→21:55)
[2019-03-18] MEDS: LISINOPRIL 10 MG TABLET PO SCH ×2 (07:33→21:55)
[2019-03-18] MEDS: LACTOBACILLUS CHEW TABLET PO SCH ×3 (07:33→21:55)
[2019-03-18 07:40] VITALS: BP 153/88
[2019-03-18] MEDS: INSULIN GLARGINE 100 UNITS/ML, PEN SQ-INSULIN SCH (09:55)
[2019-03-18 13:00] VITALS: BP 104/72
[2019-03-18 18:37] VITALS: BP 142/72
[2019-03-18] MEDS: CEPHALEXIN 500 MG CAPSULE PO SCH (21:56)
[2019-03-18] MEDS: CYCLOBENZAPRINE 10 MG TABLET PO PRN (22:06)
[2019-03-19 01:40] VITALS: BP 148/79
[2019-03-19] MEDS: HEPARIN 5,000 UNITS/ML, 1ML SQ SCH (02:21)
[2019-03-19] MEDS: CEPHALEXIN 500 MG CAPSULE PO SCH (06:02)
[2019-03-19] MEDS: LEVOTHYROXINE 100 MCG TABLET PO SCH (06:02)
[2019-03-19] MEDS: ACETAMINOPHEN 325 MG TABLET PO SCH (06:02)
[2019-03-19] MEDS: CARVEDILOL 3.125 MG TABLET PO SCH (06:03)
[2019-03-19] MEDS: INSULIN LISPRO 100 UNITS/ML, PEN SQ-INSULIN SCH ×2 (07:00→11:45)
[2019-03-19 07:05] VITALS: BP 160/79
[2019-03-19] MEDS: CYCLOBENZAPRINE 10 MG TABLET PO PRN (07:35)
[2019-03-19] MEDS: SODIUM CHLORIDE FLUSH 10ML SYR IVF SCH (09:00)
[2019-03-19] MEDS ORDERED: LISI-167 PO (09:50)
[2019-03-19] MEDS ORDERED: HYDR-3343 PO (09:50)
[2019-03-19] MEDS ORDERED: CYCL5TAB PO (09:50)
[2019-03-19] MEDS ORDERED: LEVO100T PO (09:50)
[2019-03-19] MEDS ORDERED: CARV3.1212 PO (09:50)
[2019-03-19] MEDS ORDERED: INSU100I13 SQ-INSULIN (09:50)
[2019-03-19] MEDS ORDERED: INSU100C SQ-INSULIN (09:50)
[2019-03-19] MEDS ORDERED: CEPH-368 PO (09:50)
[2019-03-19] MEDS: INSULIN GLARGINE 100 UNITS/ML, PEN SQ-INSULIN SCH (10:04)
[2019-03-19] MEDS: GABAPENTIN 400 MG CAPSULE PO SCH (10:05)
[2019-03-19] MEDS: LACTOBACILLUS CHEW TABLET PO SCH (10:05)
[2019-03-19] MEDS: LISINOPRIL 10 MG TABLET PO SCH (10:06)
[2019-03-19] MEDS: ISOSORBIDE DINITRATE 10 MG TABLET PO SCH (10:06)
== END 2019-03-19 12:02 | disposition home or self-care (01) | DRG 710 ==
LOC: ED 16:24 → EDIP 16:25 → 3N 20:29
PROVIDERS: ADMIT Internal Medicine; ATTEND Internal Medicine
PROC: 0J9K0ZZ Drainage of Left Hand Subcutaneous Tissue and Fascia, Open Approach (ICD-10-PCS; 2019-02-23)
PROC: 0LB80ZZ Excision of Left Hand Tendon, Open Approach (ICD-10-PCS; 2019-02-23)
PROC: 02HV33Z Insertion of Infusion Device into Superior Vena Cava, Percutaneous Approach (ICD-10-PCS; principal; 2019-02-28)
PROC: B5181ZA Fluoroscopy of Superior Vena Cava using Low Osmolar Contrast, Guidance (ICD-10-PCS; 2019-02-28)
PROC: B548ZZA Ultrasonography of Superior Vena Cava, Guidance (ICD-10-PCS; 2019-02-28)
DX: A41.9 Sepsis, unspecified organism (principal); N17.0 Acute kidney failure with tubular necrosis; E43 Unspecified severe protein-calorie malnutrition; E11.42 Type 2 diabetes mellitus with diabetic polyneuropathy; E11.649 Type 2 diabetes mellitus with hypoglycemia without coma; D63.8 Anemia in other chronic diseases classified elsewhere; S60.222A Contusion of left hand, initial encounter; B19.20 Unspecified viral hepatitis C without hepatic coma; E03.9 Hypothyroidism, unspecified; Z68.20 Body mass index [BMI] 20.0-20.9, adult; E78.5 Hyperlipidemia, unspecified; E83.42 Hypomagnesemia; E87.1 Hypo-osmolality and hyponatremia; F15.10 Other stimulant abuse, uncomplicated; F17.210 Nicotine dependence, cigarettes, uncomplicated; F41.9 Anxiety disorder, unspecified; I10 Essential (primary) hypertension; J44.9 Chronic obstructive pulmonary disease, unspecified; K59.00 Constipation, unspecified; L02.512 Cutaneous abscess of left hand; L03.114 Cellulitis of left upper limb; R65.20 Severe sepsis without septic shock; S63.8X2A Sprain of other part of left wrist and hand, initial encounter; W22.03XA Walked into furniture, initial encounter; Y93.89 Activity, other specified; Y92.89 Other specified places as the place of occurrence of the external cause; Y99.8 Other external cause status; Z79.4 Long term (current) use of insulin; Z80.3 Family history of malignant neoplasm of breast; Z80.42 Family history of malignant neoplasm of prostate; Z80.8 Family history of malignant neoplasm of other organs or systems
CPT/HCPCS: 36415; 36573; 71045; 80048; 80053; 80074; 80307; 82040; 82550; 82947; 82962; 83036; 83540; 83550; 83605; 83735; 84100; 84145; 84439; 84443; 85025; 85651; 86140; 87015; 87040; 87070; 87075; 87102; 87116; 87147; 87176; 87205; 87206; 87389; 87521; 90715; 93005; G0378; J0295; J0878; J1100; J1644; J2020; J2250; J2405; J2704; J3010; J3370; Q0162; A9575; C1751; J0360; J1610; J1815; J1940; J2060; J3475; J7030